=== PATIENT | female | born 1985 | race Caucasian/White ===

== ENCOUNTER 2017-03-23 12:10 | Emergency (ER) | payer MEDICAID ==
[~2017-03-23] VITALS: Ht 154.9 cm; Wt 80.3 kg
[~2017-03-23 12:10] MED LIST: ACET325T14 PO; B12/1TAB PO; FERR15DR18 PO; FOLI0.4T2 PO; HYDR-882 PO; IBUP400T PO; IBUP800T PO; OXYC-229 PO; none at this time
[2017-03-23] MEDS ORDERED: KETOROLAC 60 MG/2 ML IM ONE (13:00)
[2017-03-23] MEDS ORDERED: MAALOX/HYOSCYAMINE/LIDOCAINE 45 ML BOTTLE PO ONE (13:00)
[2017-03-23 13:22] LABS: BLOOD UREA NITROGEN 14 mg/dL (7-18)
[2017-03-23 13:25] LABS: ASPARTATE AMINO TRANSFERASE 19 U/L (15-37)
[2017-03-23] MEDS ORDERED: KETOROLAC 30 MG/1 ML ONE (14:36)
[2017-03-23] MEDS ORDERED: MAALOX/HYOSCYAMINE/LIDOCAINE 45 ML BOTTLE ONE (14:36)
[2017-03-23 15:20] VITALS: BP 115/59
[2017-03-23] MEDS ORDERED: OMNIPAQUE 350 MG/ML, 100ML BOTTLE ONE (17:52)
== END 2017-03-23 15:23 | disposition home or self-care (01) ==
LOC: ED 13:12
DX: K29.00 Acute gastritis without bleeding (principal); Z90.710 Acquired absence of both cervix and uterus
CPT/HCPCS: 36415; 74022; 74177; 80053; 81001; 83690; 85025; 87086; 93005; 96372; 99285; J1885; Q9967

== ENCOUNTER 2018-04-21 10:46 | Emergency (ER) | payer MEDICAID ==
[~2018-04-21] VITALS: Ht 154.9 cm; Wt 81.7 kg
[~2018-04-21 10:46] MED LIST changes: +IBUP-1221 PO; +IBUP-1223 PO; -IBUP400T PO; -IBUP800T PO; -OXYC-229 PO; +OXYC-307 PO
[2018-04-21 10:50] VITALS: BP 141/91
== END 2018-04-21 11:56 | disposition home or self-care (01) ==
LOC: ED 11:45
DX: J31.0 Chronic rhinitis (principal); M79.1 Myalgia
CPT/HCPCS: 71046; 99284